=== PATIENT | female | born 1975 ===

== ENCOUNTER → 2018-09-10 | Outpatient (CLI) | payer OTHER ==
[~2018-09-10] MED LIST: PHENERGAN25 MG
== END | disposition home or self-care (01) ==
LOC: SONOGRAMA 11:02
DX: E03.8 Other specified hypothyroidism (principal)

== ENCOUNTER 2019-01-17 06:50 | Outpatient (CLI) | payer OTHER | END 2019-01-17 07:43 | disposition home or self-care (01) | LOC: LAB 06:50 | DX: Z01.810 Encounter for preprocedural cardiovascular examination (principal); Z01.811 Encounter for preprocedural respiratory examination ==

== ENCOUNTER 2019-01-28 11:33 | Inpatient (IN) | payer OTHER ==
[~2019-01-28] VITALS: Ht 162.6 cm; Wt 61.7 kg
[2019-01-28] MEDS ORDERED: SYNTHROID75 MCG PO (12:18)
[2019-02-04] MEDS ORDERED: IRON325 MG PO (08:41)
[2019-02-04] MEDS ORDERED: PERCOCET 5-3251 EACH PO (08:41)
== END 2019-02-04 10:05 | DRG 743 ==
LOC: OB/GYN 02-01 05:30 → O/R 02-01 05:30 → SURH 02-01 09:15 → OB/GYN 02-01 10:36 → SURH 02-01 11:32 → OB/GYN 02-04 10:05
PROVIDERS: ADMIT Specialist
PROC: 0UT70ZZ Resection of Bilateral Fallopian Tubes, Open Approach (ICD-10-PCS; 2019-02-01)
PROC: 0UT90ZZ Resection of Uterus, Open Approach (ICD-10-PCS; principal; 2019-02-01 09:15)
DX: N80.0 Endometriosis of uterus (principal); N73.6 Female pelvic peritoneal adhesions (postinfective); N83.02 Follicular cyst of left ovary; N83.01 Follicular cyst of right ovary; E03.8 Other specified hypothyroidism; D64.89 Other specified anemias